=== PATIENT | male | born 1960 | race Caucasian/White ===

== ENCOUNTER 2018-05-16 08:40 | Inpatient (IN) | payer MEDICARE, OTHER ==
[~2018-05-16] VITALS: Ht 170.2 cm; Wt 68.0 kg
[~2018-05-16 08:40] MED LIST: ASPIRIN-LOW81 MG ORAL; BACTRIM-DS1 EA ORAL; GABAPENTIN600 MG ORAL; KETOCONAZOLE15 GM TOP; KLONOPIN1 MG ORAL; LEVOTHYROXINE50 MCG ORAL; NASONEX17 GM NASAL; PHENYTOIN SODI100 MG ORAL; PRAVASTATIN SOD20 M1 ORAL; PROAIR HFA8.5 GM INH; QUETIAPINE FUM200 MG ORAL; SAPHRIS10 MG SL
[2018-05-16] MEDS ORDERED: RISPERDAL2 MG ORAL (08:49)
[2018-05-16 09:06] VITALS: BP 115/64
--- NOTE | 2018-05-16 09:22 | Emergency Room Report ---
History of Present Illness General Chief Complaint: General Complaint Source: Medical Record Present Illness HPI This patient is not a great historian but c/o pain/swelling/infection right foot for ?two weeks, getting worse past few days. He lives in a board and care. He does not know how it started. Denies fever, n/v, other complaints. He does not have similar hx. PMH: epilepsy Allergies: Coded Allergies: No Known Allergies (Unverified , 01/20/14) Nursing Documentation-PMH Hx Cardiac Problems: Yes - EMPHYSEMA Hx COPD: Yes History Of Psychiatric Problem: Yes - schizo Hx Neurological Problems: Yes Hx Seizures: Yes Hx Epilepsy: Yes Review of Systems Constitutional: Reports: no symptoms Eye: Reports: no symptoms ENT: Reports: no symptoms Respiratory: Reports: no symptoms Cardiovascular: Reports: no symptoms Gastrointestinal: Reports: no symptoms Genitourinary: Reports: no symptoms Musculoskeletal: Reports: no symptoms Skin: Reports: no symptoms Psychiatric: Reports: no symptoms Neurological: Reports: no symptoms Endocrine: Reports: no symptoms Hematologic/Lymphatic: Reports: no symptoms Allergic: Reports: no symptoms Physical Exam Vital Signs Date Time Temp Pulse Resp B/P (MAP) Pulse Ox O2 Delivery O2 Flow Rate FiO2 05/16/18 08:28 98.0 88 18 130/8 97 Room Air 98.1 Sp02 EP Interpretation: reviewed, normal General Appearance: normal inspection, well appearing, no apparent distress, alert, GCS 15, non-toxic Head: normocephalic, atraumatic Eyes: bilateral eye normal inspection, bilateral eye PERRL, bilateral eye EOMI ENT: normal ENT inspection, hearing grossly normal, normal pharynx, no angioedema, normal voice, moist mucus membranes Neck: normal inspection, full range of motion, supple, no meningismus, no bony tend Respiratory: normal inspection, lungs clear, normal breath sounds, no rhonchi, no respiratory distress, no retraction, no accessory muscle use, no wheezing Cardiovascular #1: normal inspection, regular rate, rhythm, no edema Gastrointestinal: normal inspection, normal bowel sounds, non tender, soft, no mass, non-distended Musculoskeletal: gait/station normal, other - all normal except right foot: soft tissue swelling, infection, pus maximum plantar surface 4/5 metatarsals and MTPs, there seems to have been athlete's foot at this location Neurologic: normal inspection, alert, oriented x3, responsive, motor strength/ tone normal Psychiatric: normal inspection, judgement/insight normal, memory normal Suicide Risk Assessment: Suicidal Ideation: No Had intent to initiate attempt: No Pt's plan for suicide attempt: No Has means to complete attempt: No Skin: normal inspection, normal color, no rash, warm/dry Medical Decision Making Diagnostic Impression: Primary Impression: Cellulitis of right foot Additional Impression: Hyponatremia ER Course d/w Dr. Mora; aware foot, hyponatremia. IV fluids and IV Zosyn given Rhythm Strip Diag. Results Rhythm Strip Time: 11:23 EP Interpretation: yes Rhythm: NSR, no PVC's, no ectopy Last Vital Signs Date Time Temp Pulse Resp B/P (MAP) Pulse Ox O2 Delivery O2 Flow Rate FiO2 05/16/18 09:06 76 18 115/64 92 Room Air 05/16/18 08:28 98.0 98.1 Disposition: ADMITTED INPATIENT Condition: Serious Referrals: NON PHYSICIAN (PCP) Tuan Mistry M.D. May 16, 2018 09:22
[2018-05-16] MEDS ORDERED: Piperacillin/Tazobactam 3.375 GM in NS 110 ML IVPB ONE (09:30)
[2018-05-16 09:41] LABS: BASOPHILS % (AUTO) 0.9 % (0.0-2.0); EOSINOPHILS % (AUTO) 5.5 % (0.0-3.0); HEMATOCRIT 38.9 % (42.0-52.0); HEMOGLOBIN 13.3 G/DL (14.2-18.0); LYMPHOCYTES % (AUTO) 15.5 % (20.0-45.0); MEAN CORPUSCULAR VOLUME 88 FL (80-99); MONOCYTES % (AUTO) 8.6 % (1.0-10.0); NEUTROPHILS % (AUTO) 69.5 % (45.0-75.0); PLATELET COUNT 308 K/UL (150-450); RED BLOOD COUNT 4.43 M/UL (4.70-6.10); RED CELL DISTRIBUTION WIDTH 11.8 % (11.6-14.8); WHITE BLOOD COUNT 6.2 K/UL (4.8-10.8)
[2018-05-16 09:42] LABS: ANION GAP 4 mmol/L (5-15); BLOOD UREA NITROGEN 7 mg/dL (7-18); CALCIUM 8.2 MG/DL (8.5-10.1); CARBON DIOXIDE 30 MMOL/L (21-32); CHLORIDE 91 MMOL/L (98-107); CREATININE 0.9 MG/DL (0.55-1.30); POTASSIUM 3.7 MMOL/L (3.5-5.1); SODIUM 125 MMOL/L (136-145)
[2018-05-16 09:47] LABS: ALANINE AMINOTRANSFERASE 27 U/L (12-78); ALBUMIN 3.7 G/DL (3.4-5.0); ALBUMIN/GLOBULIN RATIO 1.2 (1.0-2.7); ALKALINE PHOSPHATASE 104 U/L (46-116); ASPARTATE AMINO TRANSFERASE 25 U/L (15-37); BILIRUBIN,TOTAL 0.3 MG/DL (0.2-1.0)
[2018-05-16 10:01] LABS: APPEARANCE,URINE CLEAR; BILIRUBIN, URINE NEGATIVE (NEGATIVE); COLOR,URINE PALE YELLOW; GLUCOSE, URINE (UA) NEGATIVE (NEGATIVE); KETONES,URINE NEGATIVE (NEGATIVE); LEUKOCYTE ESTERASE ,URINE NEGATIVE (NEGATIVE); NITRITE,URINE NEGATIVE (NEGATIVE); PH,URINE 7 (4.5-8.0); PROTEIN,URINE NEGATIVE (NEGATIVE); UROBILINOGEN,URINE NORMAL MG/DL (0.0-1.0)
[2018-05-16 10:57] VITALS: BP 110/58
--- NOTE | 2018-05-16 11:44 | Diagnostic Imaging Report ---
Indication: Foot Pain Comparison: None Findings: 3 views of the right foot were obtained. No definite acute fracture is identified. Bones are osteopenic. Narrowing of the first MTP joint, mild hallux valgus and narrowing of several of the interphalangeal joints also demonstrated. Soft tissue swelling is mild. Plantar calcaneal spur noted. IMPRESSION: No acute injury appreciated
[2018-05-16 12:37] VITALS: BP 115/73
[2018-05-16] MEDS ORDERED: GABAPENTIN300 MG ORAL (12:48)
[2018-05-16] MEDS ORDERED: SEROQUEL200 MG ORAL (12:48)
[2018-05-16] MEDS ORDERED: PHENYTOIN SODI100 MG ORAL (12:48)
[2018-05-16] MEDS ORDERED: ZOLPIDEM TARTRA10 MG ORAL (12:48)
[2018-05-16] MEDS ORDERED: GABAPENTIN600 MG ORAL (12:48)
[2018-05-16] MEDS ORDERED: INVEGA SUS234 MG/1.5 IM (12:53)
[2018-05-16] MEDS ORDERED: Zolpidem 5mg tab ORAL PRN (14:15)
[2018-05-16] MEDS ORDERED: Norco 5mg/325mg tab ORAL PRN ×2 (14:15)
[2018-05-16] MEDS ORDERED: Albuterol/Ipratropium 3ml neb HHN PRN (14:15)
[2018-05-16 16:00] VITALS: BP 128/80
[2018-05-16] MEDS ORDERED: Vancomycin 1gm/D5W 275ml IVPB ONE ×2 (17:00)
[2018-05-16 20:00] VITALS: BP 114/73
[2018-05-16] MEDS: QUEtiapine 200mg tab ORAL SCH (21:23)
[2018-05-16] MEDS: Phenytoin 100mg cap ORAL SCH (21:24)
[2018-05-16] MEDS: Heparin 5000 units/ml inj SUBQ SCH (21:27)
--- NOTE | 2018-05-16 22:00 | History and Physical Report ---
DATE OF ADMISSION: 05/16/2018 REASON FOR ADMISSION: Right foot cellulitis and right foot injury. HISTORY OF PRESENT ILLNESS: This is a 57-year-old male, who is a fairly poor historian. The patient resides at a [facility]. Over the past 2 weeks, the patient has noted increasing redness, swelling, and denudation of the skin. The patient denies any clear injury. Denies any fevers. Denies any trauma. Denies any bug bites. Denies any other significant history. The patient is seen evaluated emergency room, now being admitted for significant cellulitis. The patient unclear as to the medication list and medication problems. The findings reviewed with the ER physician and the nursing staff. PAST MEDICAL HISTORY: Notable for COPD. PSYCHIATRIC HISTORY: Cognitive dysfunction, seizure disorder. The patient with history of anxiety. MEDICATIONS: Reviewed. ALLERGIES: Reviewed. SOCIAL HISTORY: The patient does have a smoking history. He resides in a [facility]. He is disabled. REVIEW OF SYSTEMS: Otherwise negative and all reviewed. PHYSICAL EXAMINATION: GENERAL: A well-developed male, comfortable at present. VITAL SIGNS: Blood pressure 110/58, pulse 73, respiratory rate 18, saturations 100%, and temperature is 98 degrees. HEENT: Negative. NECK: Supple. No adenopathy. Extraocular movements are grossly intact. LUNGS: Fairly clear and symmetric. Reduced air entry. CARDIAC: S1 and S2. Regular rhythm without murmurs, rubs, or gallops. ABDOMEN: Soft, nontender, and nondistended. EXTREMITIES: No cyanosis or clubbing. There is edema of the right foot with noted erythema and loss of skin integrity. No clear gangrene. Reduced pulses. NEUROLOGICAL: Otherwise, grossly nonfocal. Alert and oriented x3. LABORATORY AND DIAGNOSTIC DATA: Lab data reviewed. Sodium 125, potassium 3.7, BUN and creatinine normal at 7.9. White blood cell count 6.2, hemoglobin 13.3, hematocrit 38, and platelets are normal. Toxicology screen with Dilantin of 8.5. IMPRESSION: 1. Chronic obstructive pulmonary disease per history. 2. Seizure disorder per history. 3. Evidence of right foot cellulitis. 4. Hyponatremia, unclear as to etiology. RECOMMENDATIONS: Resume medications. IV hydration. Follow up electrolytes. Follow up sodium. Follow up Dilantin level. On Synthroid, monitor TSH. Obtain podiatry evaluation. Consider ID evaluation. Antibiotics for now. Follow clinically for change and may need short-term assisted care for aggressive wound care. Kevin Mora M.D. DR: GADIEL JOB#: [id number] CC:
[2018-05-17] VITALS: BP 116/71
--- NOTE | 2018-05-17 01:30 | Consultation ---
DATE OF CONSULTATION: 05/16/2018 PODIATRIC CONSULTATION CONSULTING PHYSICIAN: Hieu Matthew D.P.M. HISTORY OF PRESENT ILLNESS: This is a 57-year-old white male, who was admitted into the emergency room today for infection of the right foot. The patient has been complaining of right foot pain, which had developed during the past week. He was brought into the emergency room, and up on examination was admitted for cellulitis of the right foot. There is no accurate history as to prior treatment with respect to the right foot infection. PAST MEDICAL HISTORY: Remarkable for seizure, epilepsy, COPD, emphysema, and schizophrenia. MEDICATIONS: Neurontin, Protonix, Ecotrin, Synthroid, Dilantin, Seroquel, Pravachol, Klonopin, and Risperdal. ALLERGIES: There are no known drug allergies. PODIATRIC PHYSICAL EXAMINATION: The vascular status, dorsalis pedis and posterior tibial arteries are equally palpable measuring 2/4 bilaterally. The capillary filling time is less than 4 seconds to all digits bilaterally. Homans sign is negative. Moderate edema of the right lower extremity is present. The edema is nonpitting. No lymphangitis or streaks are noted bilateral lower extremity. No palpable nodes are present bilaterally. MUSCULOSKELETAL: Reveals normal foot with mild cavus and no structural deformities other than mild hammering of digits 2 through 5 bilaterally. NEUROLOGICAL: Reveals intact reflexes, Achilles and patellar measuring 2/4 bilaterally. Sensation, proprioception and vibration sensations are all intact bilateral lower extremity. Babinski is negative. Clonus is absent bilateral lower extremity. DERMATOLOGICAL: Reveals erythema of the right forefoot, most extensive with digits 2 through 5 of the right foot. There are severe wet macerations of the second through the fourth interdigital spaces and they extend to the plantar aspect of the sulcus of the right foot with excoriations and sloughing of the skin. No odor is present. Some minimal bleeding from the macerated skin is noticed. There are mycotic nails present bilaterally in all digits. No other skin lesions are present. No scars or ulcerations otherwise bilateral lower extremity. LABORATORY AND DIAGNOSTIC DATA: Radiological examination consisting of right foot x-rays were performed and revealed no osseous abnormality on the right foot. ASSESSMENT: 1. Severe interdigital tinea pedis, right foot. 2. Secondary synovitis and bacterial infection, right foot. PLAN: 1. Culture and sensitivity, right foot. 2. Continue IV vancomycin and Zosyn. 3. Local wound care consisting of b.i.d wet-to-dry diluted Betadine dressing changes. 4. Elevate right lower extremity. Thank you, Dr. Mora, for allowing me to see this patient in consultation. I will follow him with you. Martín PattonPMyron DR: LOIS JOB#: [id number] CC: SOHAIL
[2018-05-17 04:00] VITALS: BP 115/74
[2018-05-17] MEDS: Vancomycin 750mg/NS 250ml IVPB SCH ×2 (05:07→17:47)
[2018-05-17 08:00] VITALS: BP 113/67
[2018-05-17 08:28] LABS: BASOPHILS % (AUTO) 0.8 % (0.0-2.0); EOSINOPHILS % (AUTO) 4.6 % (0.0-3.0); HEMATOCRIT 40.5 % (42.0-52.0); MEAN CORPUSCULAR VOLUME 88 FL (80-99); MONOCYTES % (AUTO) 7.6 % (1.0-10.0); NEUTROPHILS % (AUTO) 67.9 % (45.0-75.0); PLATELET COUNT 306 K/UL (150-450); RED BLOOD COUNT 4.61 M/UL (4.70-6.10)
--- NOTE | 2018-05-17 08:43 | General Progress Note ---
Assessment/Plan Assessment/Plan IMPRESSION: 1. Chronic obstructive pulmonary disease per history. 2. Seizure disorder per history. 3. Evidence of right foot cellulitis. 4. Hyponatremia, unclear as to etiology. PLAN podiatry ID follow up antibiotics continue to monitor skin and wound care dc once cleared may need short term wound care impression, plan, and exam edited and reviewed in detail care discussed with RN Subjective Allergies: Coded Allergies: No Known Allergies (Unverified , 01/20/14) Subjective stable alert care noted Objective Last 24 Hour Vital Signs Date Time Temp Pulse Resp B/P (MAP) Pulse Ox O2 Delivery O2 Flow Rate FiO2 05/17/18 04:00 98.5 78 18 115/74 (88) 94 98.5 05/17/18 00:00 97.8 89 18 116/71 (86) 95 97.8 05/16/18 21:00 Room Air 05/16/18 20:08 96 18 Room Air 05/16/18 20:00 98.7 83 18 114/73 (87) 95 98.7 05/16/18 16:00 98.3 97 19 128/80 (96) 97 98.3 05/16/18 13:30 Room Air 05/16/18 12:37 97.3 87 18 115/73 (87) 97 97.3 05/16/18 12:00 98.0 72 18 110/58 100 Room Air 98.1 05/16/18 10:57 72 18 110/58 100 Room Air 05/16/18 09:06 76 18 115/64 92 Room Air Intake and Output 05/16/18 05/17/18 19:00 07:00 Intake Total 710 ml 1066.667 ml Output Total 2000 ml Balance -1290 ml 1066.667 ml Intake Oral 500 ml IV Total 210 ml 1066.667 ml Output Urine Total 2000 ml Stool Total 0 ml # Voids 1 5 Laboratory Tests 05/16/18 09:19: White Blood Count 6.2, Red Blood Count 4.43L, Hemoglobin 13.3L, Hematocrit 38.9L , Mean Corpuscular Volume 88, Mean Corpuscular Hemoglobin 30.0, Mean Corpuscular Hemoglobin Concent 34.1, Red Cell Distribution Width 11.8, Platelet Count 308, Mean Platelet Volume 5.4L, Neutrophils (%) (Auto) 69.5, Lymphocytes ( %) (Auto) 15.5L, Monocytes (%) (Auto) 8.6, Eosinophils (%) (Auto) 5.5H, Basophils (%) (Auto) 0.9, Erythrocyte Sedimentation Rate 14, Prothrombin Time 10.7, Prothromb Time International Ratio 1.0, Sodium Level 125L, Potassium Level 3.7, Chloride Level 91L, Carbon Dioxide Level 30, Anion Gap 4L, Blood Urea Nitrogen 7, Creatinine 0.9, Estimat Glomerular Filtration Rate > 60, Glucose Level 87, Calcium Level 8.2L, Total Bilirubin 0.3, Aspartate Amino Transf (AST/SGOT) 25, Alanine Aminotransferase (ALT/SGPT) 27, Alkaline Phosphatase 104, Troponin I 0.000, Total Protein 6.9, Albumin 3.7, Globulin 3.2 , Albumin/Globulin Ratio 1.2, Phenytoin (Dilantin) Level 8.5L 05/16/18 09:40: Urine Color Pale yellow, Urine Appearance Clear, Urine pH 7, Urine Specific [place] 1.010, Urine Protein Negative, Urine Glucose (UA) Negative, Urine Ketones Negative, Urine Occult Blood Negative, Urine Nitrite Negative, Urine Bilirubin Negative, Urine Urobilinogen Normal, Urine Leukocyte Esterase Negative , Urine RBC 0-2H, Urine WBC 0-2, Urine Squamous Epithelial Cells None, Urine Bacteria Occasional 05/17/18 07:35: White Blood Count [Pending], Red Blood Count [Pending], Hemoglobin [Pending], Hematocrit [Pending], Mean Corpuscular Volume [Pending], Mean Corpuscular Hemoglobin [Pending], Mean Corpuscular Hemoglobin Concent [Pending], Red Cell Distribution Width [Pending], Platelet Count [Pending], Mean Platelet Volume [ Pending], Neutrophils (%) (Auto) [Pending], Lymphocytes (%) (Auto) [Pending], Monocytes (%) (Auto) [Pending], Eosinophils (%) (Auto) [Pending], Basophils (%) (Auto) [Pending], Sodium Level [Pending], Potassium Level [Pending], Chloride Level [Pending], Carbon Dioxide Level [Pending], Blood Urea Nitrogen [Pending], Creatinine [Pending], Estimat Glomerular Filtration Rate [Pending], Glucose Level [Pending], Calcium Level [Pending], Phenytoin (Dilantin) Level [Pending] Height (Feet): 5 Height (Inches): 7.00 Weight (Pounds): 150 Objective GENERAL: A well-developed male, comfortable at present. NAD HEENT: Negative. NECK: Supple. No adenopathy. Extraocular movements are grossly intact. LUNGS: Fairly clear and symmetric. Reduced air entry. CARDIAC: S1 and S2. Regular rhythm without murmurs, rubs, or gallops. ABDOMEN: Soft, nontender, and nondistended. EXTREMITIES: No cyanosis or clubbing. There is edema of the right foot with noted erythema and loss of skin integrity. No clear gangrene. Reduced pulses. NEUROLOGICAL: Otherwise, grossly nonfocal. Alert and oriented x3. Kevin Mora MD May 17, 2018 08:43
[2018-05-17] MEDS ORDERED: QUEtiapine 200mg tab ORAL SCH (09:00)
[2018-05-17] MEDS: Phenytoin 100mg cap ORAL SCH ×2 (09:01→20:44)
[2018-05-17] MEDS: Aspirin EC 81mg tab ORAL SCH (09:02)
[2018-05-17] MEDS: Heparin 5000 units/ml inj SUBQ SCH ×2 (09:04→20:46)
[2018-05-17 09:26] LABS: ANION GAP 8 mmol/L (5-15); BLOOD UREA NITROGEN 7 mg/dL (7-18); CALCIUM 8.2 MG/DL (8.5-10.1); CARBON DIOXIDE 26 MMOL/L (21-32); CHLORIDE 96 MMOL/L (98-107); CREATININE 0.9 MG/DL (0.55-1.30); POTASSIUM 3.7 MMOL/L (3.5-5.1); SODIUM 130 MMOL/L (136-145)
[2018-05-17 12:00] VITALS: BP 110/69
[2018-05-17] MEDS ORDERED: Isovue-300 100ml vial INJ PRN (12:15)
--- NOTE | 2018-05-17 12:41 | Consultation ---
History of Present Illness General Date patient seen: May 17, 2018 Chief Complaint: General Complaint Present Illness HPI 57-year-old male, with hx of schizophrenia and mmp who was admitted from his board and care. the pt was agitated and confused. he has disorganized behavior. the pt is delusional Allergies: Coded Allergies: No Known Allergies (Unverified , 01/20/14) Medication History Scheduled Albuterol Sulfate* (Proair Hfa*), 2 PUFFS INH Q6H, (Reported) Aspirin (Aspirin EC), 81 MG ORAL DAILY, (Reported) Clonazepam* (Klonopin*), 1 MG ORAL TID, (Reported) Gabapentin* (Gabapentin*), 600 MG ORAL BID, (Reported) Gabapentin* (Gabapentin*), 300 MG ORAL noon, (Reported) Levothyroxine Sodium* (Levothyroxine Sodium*), 75 MCG ORAL DAILY, (Reported) Paliperidone Palmitate (Invega Sustenna), 234 MG IM [id number], (Reported) Phenytoin Sodium Extended* (Phenytoin Sodium Extended*), 200 MG ORAL DAILY, ( Reported) Phenytoin Sodium Extended* (Phenytoin Sodium Extended*), 300 MG ORAL BEDTIME, ( Reported) Pravastatin Sod* (Pravastatin Sod*), 20 MG ORAL BEDTIME, (Reported) Quetiapine Fumarate* (Seroquel*), 200 MG ORAL DAILY, (Reported) Quetiapine Fumarate* (Seroquel*), 400 MG ORAL QHS, (Reported) Risperidone* (Risperdal*), 3 MG ORAL BID, (Reported) Scheduled PRN Zolpidem Tartrate* (Zolpidem Tartrate*), 10 MG ORAL BEDTIME PRN for Insomnia, ( Reported) Discontinued Medications Gabapentin* (Gabapentin*), 600 MG ORAL BID, (Reported) Discontinued Reason: Medication dose changed Ketoconazole* (Nizoral*), 1 APPLIC TOP BID Discontinued Reason: Therapy completed Mometasone Furoate (Nasonex), 2 SPRAYS NASAL DAILY, (Reported) Discontinued Reason: Therapy completed Trimethoprim/Sulfamethoxazole (Bactrim Ds Tablet), 1 TAB ORAL TWICE A DAY Discontinued Reason: Therapy completed Patient History History Provided By: Patient, Medical Record, PMD Healthcare decision maker Resuscitation status Full Code Advanced Directive on File Past Medical/Surgical History Past Medical/Surgical History: (1) Hyponatremia syndrome (2) Hyponatremia (3) Seizure (4) Tinea pedis (5) Callus (6) Cellulitis of right foot Review of Systems Psychiatric: Reports: prior hx, anxiety, depressed feelings, emotional problems , hallucinations Physical Exam General Appearance: no apparent distress, alert, confused, agitated Last 24 Hour Vital Signs Date Time Temp Pulse Resp B/P (MAP) Pulse Ox O2 Delivery O2 Flow Rate FiO2 05/17/18 08:00 98.2 85 21 113/67 (82) 97 98.2 05/17/18 04:00 98.5 78 18 115/74 (88) 94 98.5 05/17/18 00:00 97.8 89 18 116/71 (86) 95 97.8 05/16/18 21:00 Room Air 05/16/18 20:08 96 18 Room Air 05/16/18 20:00 98.7 83 18 114/73 (87) 95 98.7 05/16/18 16:00 98.3 97 19 128/80 (96) 97 98.3 05/16/18 13:30 Room Air 05/16/18 12:37 97.3 87 18 115/73 (87) 97 97.3 Intake and Output 05/16/18 05/17/18 19:00 07:00 Intake Total 710 ml 1066.667 ml Output Total 2000 ml Balance -1290 ml 1066.667 ml Intake Oral 500 ml IV Total 210 ml 1066.667 ml Output Urine Total 2000 ml Stool Total 0 ml # Voids 1 5 Laboratory Tests Test 05/17/18 07:35 White Blood Count 5.0 K/UL (4.8-10.8) Red Blood Count 4.61 M/UL (4.70-6.10) L Hemoglobin 14.0 G/DL (14.2-18.0) L Hematocrit 40.5 % (42.0-52.0) L Mean Corpuscular Volume 88 FL (80-99) Mean Corpuscular Hemoglobin 30.4 PG (27.0-31.0) Mean Corpuscular Hemoglobin Concent 34.6 G/DL (32.0-36.0) Red Cell Distribution Width 12.0 % (11.6-14.8) Platelet Count 306 K/UL (150-450) Mean Platelet Volume 5.2 FL (6.5-10.1) L Neutrophils (%) (Auto) 67.9 % (45.0-75.0) Lymphocytes (%) (Auto) 19.0 % (20.0-45.0) L Monocytes (%) (Auto) 7.6 % (1.0-10.0) Eosinophils (%) (Auto) 4.6 % (0.0-3.0) H Basophils (%) (Auto) 0.8 % (0.0-2.0) Sodium Level 130 MMOL/L (136-145) L Potassium Level 3.7 MMOL/L (3.5-5.1) Chloride Level 96 MMOL/L (98-107) L Carbon Dioxide Level 26 MMOL/L (21-32) Anion Gap 8 mmol/L (5-15) Blood Urea Nitrogen 7 mg/dL (7-18) Creatinine 0.9 MG/DL (0.55-1.30) Estimat Glomerular Filtration Rate > 60 mL/min (>60) Glucose Level 142 MG/DL (74-106) H Calcium Level 8.2 MG/DL (8.5-10.1) L Phenytoin (Dilantin) Level 8.5 ug/mL (10-20) L Height (Feet): 5 Height (Inches): 7.00 Weight (Pounds): 150 Medications Current Medications Medications (Trade) Dose Ordered Sig/[place] Route PRN Reason Start Time Stop Time Status Last Admin Dose Admin Acetaminophen (Tylenol) 650 mg Q4H PRN ORAL Mild Pain/Temp > 100.5 05/16/18 14:15 06/15/18 14:14 Acetaminophen/ Hydrocodone Bitart ([place] 5/325) 1 tab Q4H PRN ORAL Moderate Pain (Pain Scale 4-6) 05/16/18 14:15 05/23/18 14:14 Acetaminophen/ Hydrocodone Bitart ([place] 5/325) 2 tab Q4H PRN ORAL Severe Pain (Pain Scale 7-10) 05/16/18 14:15 05/23/18 14:14 Al Hydroxide/Mg Hydroxide (Mylanta) 30 ml Q6H PRN ORAL Per rx protocol 05/16/18 14:15 06/15/18 14:14 Albuterol/ Ipratropium (Albuterol/ Ipratropium) 3 ml Q6H PRN HHN Shortness of Breath 05/16/18 14:15 05/21/18 14:14 Aspirin (Ecotrin) 81 mg DAILY ORAL 05/17/18 09:00 06/16/18 08:59 05/17/18 09:02 Dextrose (Dextrose 50%) 50 ml STAT PRN IV Hypoglycemia 05/16/18 14:15 06/15/18 14:14 Gabapentin (Neurontin) 300 mg Q24H ORAL 05/17/18 12:00 06/16/18 11:59 Gabapentin (Neurontin) 600 mg Q12H ORAL 05/16/18 21:00 06/15/18 20:59 05/17/18 09:10 Heparin Sodium (Porcine) (Heparin 5000 units/ml) 5,000 units EVERY 12 HOURS SUBQ 05/16/18 21:00 06/15/18 20:59 05/17/18 09:04 Iopamidol (Isovue-300 100ml) 100 ml NOW PRN INJ Radiology Procedure 05/17/18 12:15 05/19/18 12:13 UNV Levothyroxine Sodium (Synthroid) 75 mcg DAILY ORAL 05/17/18 09:00 06/16/18 08:59 05/17/18 09:01 Pantoprazole (Protonix) 40 mg DAILY ORAL 05/17/18 09:00 06/16/18 08:59 05/17/18 09:02 Phenytoin (Dilantin) 200 mg DAILY ORAL 05/17/18 09:00 06/16/18 08:59 05/17/18 09:01 Phenytoin (Dilantin) 300 mg BEDTIME ORAL 05/16/18 21:00 06/15/18 20:59 05/16/18 21:24 Pravastatin Sodium (Pravachol) 20 mg BEDTIME ORAL 05/16/18 21:00 06/15/18 20:59 05/16/18 21:23 Quetiapine Fumarate (SEROquel) 200 mg DAILY ORAL 05/17/18 09:00 06/16/18 08:59 05/17/18 09:02 Quetiapine Fumarate (SEROquel) 400 mg QHS ORAL 05/16/18 21:00 06/15/18 20:59 05/16/18 21:23 Risperidone (RisperDAL) 3 mg BID ORAL 05/16/18 18:00 06/15/18 17:59 05/17/18 09:02 Sodium Chloride 1,000 ml @ 100 mls/hr Q10H IVLG 05/16/18 16:00 06/15/18 15:59 05/17/18 02:36 Vancomycin HCl (Vanco rx to dose) 1 ea DAILY PRN MISC Per rx protocol 05/16/18 14:15 06/15/18 14:14 Vancomycin/Sodium Chloride 250 ml @ 166.667 mls/hr Q12H IVPB 05/17/18 05:00 05/22/18 04:59 05/17/18 05:07 Zolpidem Tartrate (Ambien) 5 mg HSPRN PRN ORAL Insomnia 05/16/18 14:15 05/23/18 14:14 Assessment/Plan Status: stable Assessment/Plan Schizophrenia encephalopathy -risperdal 3mg bid -haldol 5mg q 6hr prn Vijay Todd MD May 17, 2018 12:41
[2018-05-17] MEDS ORDERED: Gadavist 7.5mMol/7.5ml vial IV PRN (13:30)
[2018-05-17] MEDS ORDERED: Gadavist 7.5mMol/7.5ml vial IV ONE (13:30)
[2018-05-17 16:00] VITALS: BP 107/66
--- NOTE | 2018-05-17 16:39 | Diagnostic Imaging Report ---
Indication: Open ulceration and infection/cellulitis plantar aspect of the lateral foot. Technique: Right forefoot and midfoot imaging utilizing multiplanar T1 fast spin-echo, proton and T2 fast spin-echo with fat saturation, and STIR. Comparison: None Findings: No acute osteomyelitis identified. Bone marrow signal is well preserved throughout the visualized midfoot and forefoot. No joint effusion identified. There is subcutaneous edema and edema within the intrinsic muscles within the foot deep to the plantar aponeurosis. Findings consistent with cellulitis. IMPRESSION: No acute osteomyelitis or abscess identified.
--- NOTE | 2018-05-17 18:47 | Consultation ---
DATE OF CONSULTATION: 05/17/2018 INFECTIOUS DISEASE CONSULTATION CONSULTING PHYSICIAN: Angeline Santana M.D. REFERRING PHYSICIAN: Kevin Mora M.D. REASON FOR CONSULTATION: Right leg cellulitis and wound infection. HISTORY OF PRESENTING ILLNESS: This is a 57-year-old gentleman with history of COPD, cognitive dysfunction, seizure disorder, anxiety, who comes in because he had right foot ulcers, and Infectious Diseases consultation has been obtained for antibiotics. PAST MEDICAL HISTORY: 1. History of COPD. 2. Cognitive dysfunction. 3. Seizure disorder. 4. Anxiety. SOCIAL HISTORY: He used to be a smoker. He does not smoke anymore. Rest of the history is unknown. FAMILY HISTORY: Unknown. REVIEW OF SYSTEMS: Unable to obtain currently. MEDICATIONS: As an inpatient, the patient is on gabapentin, Protonix, aspirin, levothyroxine, Dilantin, Seroquel, IV vancomycin, subcutaneous heparin, Pravachol, Risperdal, ipratropium and albuterol, Tylenol, Ambien, Mylanta, and [place]. ALLERGIES: No known drug allergies. PHYSICAL EXAMINATION: VITAL SIGNS: Temperature of 98.2, T-max of 98.3, pulse of 85, respiratory rate 21, blood pressure 113/67, O2 saturation of 97%. HEENT: Pupils equally reactive to light and accommodation. Mouth appears clean without thrush. NECK: Supple. No adenopathy. No JVD. CARDIOVASCULAR: Regular rate and rhythm. No murmurs. LUNGS: Clear to auscultation bilaterally. No crackles. No wheezes. ABDOMEN: Soft and nontender. No organomegaly. EXTREMITIES: No cyanosis, no clubbing, no edema. Right foot dorsal aspect ulcers noted. Right foot plantar aspect ulcers noted. LABORATORY AND DIAGNOSTIC DATA: White count 5, hemoglobin 14, hematocrit 40.5, MCV 88, platelet count of 306 with neutrophils of 67%. Sodium 130, potassium 3.7, chloride 96, bicarbonate 26, BUN 7, creatinine 0.9, glucose 142, calcium 8.2. Total bilirubin 0.3 on 05/16/2018. AST 25, ALT 27, alkaline phosphatase 104, total protein 6.9, and albumin 3.7. UA showing 0 to 2 white cells. Foot x-ray is showing no acute injury. ASSESSMENT: 1. This is a 57-year-old gentleman with history of cognitive dysfunction, seizure disorder, and anxiety, who comes in with right foot ulcers with a concern regarding underlying osteomyelitis as a possibility. He also has right foot cellulitis. 2. Seizure disorder. 3. Cognitive dysfunction. PLAN: 1. Continue IV vancomycin. 2. We will order a CT of the right foot. 3. We will follow up. 4. We will order foot cultures. I would like to thank Dr. Mora for this consultation. Angeline Santana M.D. DR: TRACEE JOB#: [id number] CC: Kevin Mora M.D.; Fax#: [phone]
--- NOTE | 2018-05-17 19:09 | Podiatric Progress Note ---
Assessment/Plan Patient Nicholas Obando is a 57 year old male who was admitted on May 16, 2018 at 09:45 with Status: progressing Assessment/Plan A 1. Interdigital tinea severe right foot with secondary bacterial infection P 1. Continue IV antibiotics 2. Continue wet to dry diluted Betadine dressing changes Subjective Constitutional: pain decreased, elevating limb Allergies: Coded Allergies: No Known Allergies (Unverified , 01/20/14) Objective Exam Last 24 Hour Vital Signs Date Time Temp Pulse Resp B/P (MAP) Pulse Ox O2 Delivery O2 Flow Rate FiO2 05/17/18 16:00 99.1 75 20 107/66 (80) 97 99.1 05/17/18 12:00 98.5 90 22 110/69 (83) 97 98.5 05/17/18 09:00 Room Air 05/17/18 08:00 98.2 85 21 113/67 (82) 97 98.2 05/17/18 04:00 98.5 78 18 115/74 (88) 94 98.5 05/17/18 00:00 97.8 89 18 116/71 (86) 95 97.8 05/16/18 21:00 Room Air 05/16/18 20:08 96 18 Room Air 05/16/18 20:00 98.7 83 18 114/73 (87) 95 98.7 Laboratory Tests Test 05/17/18 07:35 White Blood Count 5.0 K/UL (4.8-10.8) Red Blood Count 4.61 M/UL (4.70-6.10) L Hemoglobin 14.0 G/DL (14.2-18.0) L Hematocrit 40.5 % (42.0-52.0) L Mean Corpuscular Volume 88 FL (80-99) Mean Corpuscular Hemoglobin 30.4 PG (27.0-31.0) Mean Corpuscular Hemoglobin Concent 34.6 G/DL (32.0-36.0) Red Cell Distribution Width 12.0 % (11.6-14.8) Platelet Count 306 K/UL (150-450) Mean Platelet Volume 5.2 FL (6.5-10.1) L Neutrophils (%) (Auto) 67.9 % (45.0-75.0) Lymphocytes (%) (Auto) 19.0 % (20.0-45.0) L Monocytes (%) (Auto) 7.6 % (1.0-10.0) Eosinophils (%) (Auto) 4.6 % (0.0-3.0) H Basophils (%) (Auto) 0.8 % (0.0-2.0) Sodium Level 130 MMOL/L (136-145) L Potassium Level 3.7 MMOL/L (3.5-5.1) Chloride Level 96 MMOL/L (98-107) L Carbon Dioxide Level 26 MMOL/L (21-32) Anion Gap 8 mmol/L (5-15) Blood Urea Nitrogen 7 mg/dL (7-18) Creatinine 0.9 MG/DL (0.55-1.30) Estimat Glomerular Filtration Rate > 60 mL/min (>60) Glucose Level 142 MG/DL (74-106) H Calcium Level 8.2 MG/DL (8.5-10.1) L Phenytoin (Dilantin) Level 8.5 ug/mL (10-20) L General Appearance: no apparent distress, confused Vascular Pulses: 2 dorsalis pedis (R), 2 dorsalis pedis (L), 2 posterior tibial (R), 2 posterior tibial (L) Edema: no edema noted foot (L); 1+ (<2mm) foot (R), 1+ (<2mm) ankle (R) Temperature: increased warmth Dermatological Wound Assessment : Wound location: right, distal, dorsal, foot Malodor: none/absent Skin Surrounding Wound: erythema, moist, macerated Hieu Matthew DPM May 17, 2018 19:09
[2018-05-17 20:00] VITALS: BP 113/73
[2018-05-17] MEDS: QUEtiapine 200mg tab ORAL SCH (20:44)
[2018-05-18] VITALS: BP 127/82
[2018-05-18 04:00] VITALS: BP 125/84
[2018-05-18] MEDS: Vancomycin 750mg/NS 250ml IVPB SCH ×2 (04:48→17:03)
[2018-05-18 08:00] VITALS: BP 111/60
[2018-05-18] MEDS: Aspirin EC 81mg tab ORAL SCH (08:04)
[2018-05-18] MEDS: QUEtiapine 200mg tab ORAL SCH (08:05)
[2018-05-18] MEDS: Phenytoin 100mg cap ORAL SCH ×2 (08:05→20:43)
[2018-05-18] MEDS: Heparin 5000 units/ml inj SUBQ SCH ×2 (08:08→20:46)
--- NOTE | 2018-05-18 10:36 | General Progress Note ---
Assessment/Plan Assessment/Plan Schizophrenia encephalopathy -risperdal 3mg bid -haldol 5mg q 6hr prn Subjective Date patient seen: May 18, 2018 Neurologic/Psychiatric: Reports: anxiety, depressed, emotional problems Allergies: Coded Allergies: No Known Allergies (Unverified , 01/20/14) Subjective the pt cont to be disorganized and at times agitated Objective Last 24 Hour Vital Signs Date Time Temp Pulse Resp B/P (MAP) Pulse Ox O2 Delivery O2 Flow Rate FiO2 05/18/18 09:00 Room Air 05/18/18 08:00 98.5 84 22 111/60 (77) 96 98.5 84 05/18/18 04:00 98.3 70 20 125/84 (98) 94 98.3 05/18/18 00:00 97.5 69 20 127/82 (97) 94 97.5 05/17/18 21:00 Room Air 05/17/18 20:26 82 18 Room Air 05/17/18 20:00 97.7 67 18 113/73 (86) 96 97.7 05/17/18 16:00 99.1 75 20 107/66 (80) 97 99.1 05/17/18 12:00 98.5 90 22 110/69 (83) 97 98.5 Intake and Output 05/17/18 05/18/18 19:00 07:00 Intake Total 1226.667 ml 1333.334 ml Balance 1226.667 ml 1333.334 ml Intake Oral 960 ml IV Total 266.667 ml 1333.334 ml # Voids 4 Laboratory Tests 05/18/18 05:10: Vancomycin Level Trough 14.7H Height (Feet): 5 Height (Inches): 7.00 Weight (Pounds): 150 General Appearance: no apparent distress, alert Neurologic: alert, responsive - delusional, depressed affect Vijay Todd MD May 18, 2018 10:36
[2018-05-18 12:00] VITALS: BP 115/70
--- NOTE | 2018-05-18 12:39 | General Progress Note ---
Assessment/Plan Assessment/Plan IMPRESSION: 1. Chronic obstructive pulmonary disease per history. 2. Seizure disorder per history. 3. Evidence of right foot cellulitis. 4. Hyponatremia, unclear as to etiology. PLAN podiatry appreciated ID follow up and clearance antibiotics continue to monitor skin and wound care dc once cleared may need short term wound care and SNF care impression, plan, and exam edited and reviewed in detail care discussed with RN Subjective Allergies: Coded Allergies: No Known Allergies (Unverified , 01/20/14) Subjective stable alert care noted MRI and MD notes reviewed Objective Last 24 Hour Vital Signs Date Time Temp Pulse Resp B/P (MAP) Pulse Ox O2 Delivery O2 Flow Rate FiO2 05/18/18 12:00 97.9 78 22 115/70 (85) 99 97.9 78 05/18/18 09:00 Room Air 05/18/18 08:00 98.5 84 22 111/60 (77) 96 98.5 84 05/18/18 04:00 98.3 70 20 125/84 (98) 94 98.3 05/18/18 00:00 97.5 69 20 127/82 (97) 94 97.5 05/17/18 21:00 Room Air 05/17/18 20:26 82 18 Room Air 05/17/18 20:00 97.7 67 18 113/73 (86) 96 97.7 05/17/18 16:00 99.1 75 20 107/66 (80) 97 99.1 Intake and Output 05/17/18 05/18/18 19:00 07:00 Intake Total 1226.667 ml 1333.334 ml Balance 1226.667 ml 1333.334 ml Intake Oral 960 ml IV Total 266.667 ml 1333.334 ml # Voids 4 Laboratory Tests 05/18/18 05:10: Vancomycin Level Trough 14.7H Height (Feet): 5 Height (Inches): 7.00 Weight (Pounds): 150 Objective GENERAL: A well-developed male, comfortable at present. NAD HEENT: Negative. NECK: Supple. No adenopathy. Extraocular movements are grossly intact. LUNGS: Fairly clear and symmetric. Reduced air entry. CARDIAC: S1 and S2. Regular rhythm without murmurs, rubs, or gallops. ABDOMEN: Soft, nontender, and nondistended. EXTREMITIES: No cyanosis or clubbing. slight improvement noted NEUROLOGICAL: Otherwise, grossly nonfocal. Alert and oriented x3. Kevin Mora MD May 18, 2018 12:39
[2018-05-18 16:00] VITALS: BP 105/67
--- NOTE | 2018-05-18 17:03 | Infectious Diseases Prog Note ---
Assessment/Plan Assessment/Plan A; R foot cellulitis Tinea pedis Seizure disorder Schizophrenia P; Continue Vancomycin Add Clotrimazole Subjective ROS Limited/Unobtainable: No Constitutional: Reports: no symptoms Respiratory: Reports: no symptoms Cardiovascular: Reports: no symptoms Gastrointestinal/Abdominal: Reports: no symptoms Genitourinary: Reports: no symptoms Skin: Reports: rash Allergies: Coded Allergies: No Known Allergies (Unverified , 01/20/14) Objective Vital Signs Last 24 Hour Vital Signs Date Time Temp Pulse Resp B/P (MAP) Pulse Ox O2 Delivery O2 Flow Rate FiO2 05/18/18 16:00 98.1 69 21 105/67 (80) 99 98.1 69 05/18/18 12:00 97.9 78 22 115/70 (85) 99 97.9 78 05/18/18 09:00 Room Air 05/18/18 08:00 98.5 84 22 111/60 (77) 96 98.5 84 05/18/18 04:00 98.3 70 20 125/84 (98) 94 98.3 05/18/18 00:00 97.5 69 20 127/82 (97) 94 97.5 05/17/18 21:00 Room Air 05/17/18 20:26 82 18 Room Air 05/17/18 20:00 97.7 67 18 113/73 (86) 96 97.7 Height (Feet): 5 Height (Inches): 7.00 Weight (Pounds): 150 General Appearance: no acute distress HEENT: mucous membranes moist Respiratory/Chest: lungs clear Cardiovascular: normal rate Abdomen: soft, non tender Extremities: no edema Skin: other - rash on R third to fifth toes Neurologic/Psychiatric: alert, responsive Microbiology Date/Time Source Procedure Growth Status 05/16/18 09:15 Blood Blood Culture - Preliminary NO GROWTH AFTER 24 HOURS Resulted 05/16/18 09:00 Blood Blood Culture - Preliminary NO GROWTH AFTER 24 HOURS Resulted 05/16/18 09:40 Nasal Nares MRSA Culture - Final NO METHICILLIN RESISTANT STAPH AUREUS... Complete 05/16/18 09:40 Rectum VRE Culture - Final NO VANCOMYCIN RESISTANT ENTEROCOCCUS ... Complete 05/16/18 09:40 Rectum - Final NO CARBAPENEM-RESISTANT ENTEROBACTERI... Complete Laboratory Tests Test 05/18/18 05:10 Vancomycin Level Trough 14.7 ug/mL (5.0-12.0) H Current Medications Medications (Trade) Dose Ordered Sig/Celina Route PRN Reason Start Time Stop Time Status Last Admin Dose Admin Acetaminophen (Tylenol) 650 mg Q4H PRN ORAL Mild Pain/Temp > 100.5 05/16/18 14:15 06/15/18 14:14 Acetaminophen/ Hydrocodone Bitart ([place] 5/325) 1 tab Q4H PRN ORAL Moderate Pain (Pain Scale 4-6) 05/16/18 14:15 05/23/18 14:14 Acetaminophen/ Hydrocodone Bitart ([place] 5/325) 2 tab Q4H PRN ORAL Severe Pain (Pain Scale 7-10) 05/16/18 14:15 05/23/18 14:14 Al Hydroxide/Mg Hydroxide (Mylanta) 30 ml Q6H PRN ORAL Per rx protocol 05/16/18 14:15 06/15/18 14:14 Albuterol/ Ipratropium (Albuterol/ Ipratropium) 3 ml Q6H PRN HHN Shortness of Breath 05/16/18 14:15 05/21/18 14:14 Aspirin (Ecotrin) 81 mg DAILY ORAL 05/17/18 09:00 06/16/18 08:59 05/18/18 08:04 Clonazepam (KlonoPIN) 1 mg BID ORAL 05/17/18 14:00 05/24/18 13:59 05/18/18 08:04 Dextrose (Dextrose 50%) 50 ml STAT PRN IV Hypoglycemia 05/16/18 14:15 06/15/18 14:14 Gabapentin (Neurontin) 300 mg Q24H ORAL 05/17/18 12:00 06/16/18 11:59 05/18/18 08:04 Gabapentin (Neurontin) 600 mg Q12H ORAL 05/16/18 21:00 06/15/18 20:59 05/17/18 20:50 Gadobutrol (Gadavist) 7.5 mmol NOW PRN IV Radiology Procedure 05/17/18 13:30 05/21/18 13:29 Heparin Sodium (Porcine) (Heparin 5000 units/ml) 5,000 units EVERY 12 HOURS SUBQ 05/16/18 21:00 06/15/18 20:59 05/18/18 08:08 Iopamidol (Isovue-300 100ml) 100 ml NOW PRN INJ Radiology Procedure 05/17/18 12:15 05/19/18 12:13 Levothyroxine Sodium (Synthroid) 75 mcg DAILY ORAL 05/17/18 09:00 06/16/18 08:59 05/18/18 08:04 Pantoprazole (Protonix) 40 mg DAILY ORAL 05/17/18 09:00 06/16/18 08:59 05/18/18 08:04 Phenytoin (Dilantin) 200 mg DAILY ORAL 05/17/18 09:00 06/16/18 08:59 05/18/18 08:05 Phenytoin (Dilantin) 300 mg BEDTIME ORAL 05/16/18 21:00 06/15/18 20:59 05/17/18 20:44 Pravastatin Sodium (Pravachol) 20 mg BEDTIME ORAL 05/16/18 21:00 06/15/18 20:59 05/17/18 20:45 Quetiapine Fumarate (SEROquel) 400 mg QHS ORAL 05/16/18 21:00 06/15/18 20:59 05/18/18 08:05 Risperidone (RisperDAL) 3 mg BID ORAL 05/16/18 18:00 06/15/18 17:59 05/18/18 08:04 Sodium Chloride 1,000 ml @ 100 mls/hr Q10H IVLG 05/16/18 16:00 06/15/18 15:59 05/18/18 08:06 Vancomycin HCl (Vanco rx to dose) 1 ea DAILY PRN MISC Per rx protocol 05/16/18 14:15 06/15/18 14:14 Vancomycin/Sodium Chloride 250 ml @ 166.667 mls/hr Q12H IVPB 05/17/18 05:00 05/22/18 04:59 05/18/18 04:48 Zolpidem Tartrate (Ambien) 5 mg HSPRN PRN ORAL Insomnia 05/16/18 14:15 05/23/18 14:14 Neville Smith MD May 18, 2018 17:02
--- NOTE | 2018-05-18 19:51 | Podiatric Progress Note ---
Assessment/Plan Patient Nicholas Obando is a 57 year old male who was admitted on May 16, 2018 at 09:45 with cellulitis and pain right foot Status: progressing Assessment/Plan A 1. Interdigital tinea/Dermatophytosis right foot 2. Secondary bacterial infection with macerations/ulceration right second, third and fourth interdigital areas protruding to the sulcus P. !. Continue IV vanco 2. C&S pending 3. Continue local wound care 4. Start Lamisil PO Subjective Constitutional: pain decreased Allergies: Coded Allergies: No Known Allergies (Unverified , 01/20/14) Objective Exam Last 24 Hour Vital Signs Date Time Temp Pulse Resp B/P (MAP) Pulse Ox O2 Delivery O2 Flow Rate FiO2 05/18/18 16:00 98.1 69 21 105/67 (80) 99 98.1 69 05/18/18 12:00 97.9 78 22 115/70 (85) 99 97.9 78 05/18/18 09:00 Room Air 05/18/18 08:00 98.5 84 22 111/60 (77) 96 98.5 84 05/18/18 04:00 98.3 70 20 125/84 (98) 94 98.3 05/18/18 00:00 97.5 69 20 127/82 (97) 94 97.5 05/17/18 21:00 Room Air 05/17/18 20:26 82 18 Room Air 05/17/18 20:00 97.7 67 18 113/73 (86) 96 97.7 Laboratory Tests Test 05/18/18 05:10 Vancomycin Level Trough 14.7 ug/mL (5.0-12.0) H Microbiology Date/Time Source Procedure Growth Status 05/16/18 09:15 Blood Blood Culture - Preliminary NO GROWTH AFTER 24 HOURS Resulted 05/16/18 09:40 Nasal Nares MRSA Culture - Final NO METHICILLIN RESISTANT STAPH AUREUS... Complete 05/16/18 09:40 Rectum VRE Culture - Final NO VANCOMYCIN RESISTANT ENTEROCOCCUS ... Complete 05/16/18 09:40 Rectum - Final NO CARBAPENEM-RESISTANT ENTEROBACTERI... Complete General Appearance: mild distress, confused Vascular Edema: 1+ (<2mm) foot (R) Dermatological Wound Assessment : Wound location: right, distal, dorsal, foot, other [place] Classification: 1 superficial ulcer Exudate Amount: Scant Wound Margin: well circumscribed Malodor: none/absent Skin Surrounding Wound: erythema, edema, macerated Temperature: within normal limits Cleansing Solution/Irrigant: Betadine Hieu Matthew DPM May 18, 2018 19:51
[2018-05-18 20:00] VITALS: BP 130/82
[2018-05-19] VITALS: BP 119/73
[2018-05-19 04:00] VITALS: BP 106/74
[2018-05-19] MEDS: Vancomycin 750mg/NS 250ml IVPB SCH ×2 (04:32→17:14)
[2018-05-19 08:00] VITALS: BP 121/71
[2018-05-19] MEDS: Heparin 5000 units/ml inj SUBQ SCH ×2 (09:00→21:06)
[2018-05-19] MEDS: Aspirin EC 81mg tab ORAL SCH (09:44)
[2018-05-19] MEDS: Phenytoin 100mg cap ORAL SCH ×2 (09:44→21:05)
--- NOTE | 2018-05-19 09:57 | General Progress Note ---
Assessment/Plan Assessment/Plan IMPRESSION: 1. Chronic obstructive pulmonary disease per history. 2. Seizure disorder per history. 3. Evidence of right foot cellulitis. 4. Hyponatremia, unclear as to etiology. PLAN podiatry appreciated and care to continue ID follow up and clearance- on iv antibiotics antibiotics/ cultures reviewed continue to monitor skin and wound care dc once cleared may need short term wound care and SNF care impression, plan, and exam edited and reviewed in detail care discussed with RN Subjective Allergies: Coded Allergies: No Known Allergies (Unverified , 01/20/14) Subjective stable alert on iv antibiotics Objective Last 24 Hour Vital Signs Date Time Temp Pulse Resp B/P (MAP) Pulse Ox O2 Delivery O2 Flow Rate FiO2 05/19/18 08:00 98.1 74 19 121/71 (88) 98 98.1 05/19/18 04:00 98.0 93 19 106/74 (85) 98 98.0 05/19/18 00:00 98.2 77 19 119/73 (88) 96 98.2 05/18/18 21:34 72 20 Room Air 21 05/18/18 21:00 Room Air 05/18/18 20:00 98.0 70 19 130/82 (98) 98 98.0 05/18/18 16:00 98.1 69 21 105/67 (80) 99 98.1 69 05/18/18 12:00 97.9 78 22 115/70 (85) 99 97.9 78 Intake and Output 05/18/18 05/19/18 19:00 07:00 Intake Total 1900 ml 3150.000 ml Output Total 1500 ml Balance 1900 ml 1650.000 ml Intake Oral 1200 ml 2000 ml IV Total 700 ml 1150.000 ml Output Urine Total 1500 ml # Voids 2 5 Height (Feet): 5 Height (Inches): 7.00 Weight (Pounds): 150 Objective GENERAL: A well-developed male, comfortable at present. NAD HEENT: Negative. NECK: Supple. No adenopathy. Extraocular movements are grossly intact. LUNGS: Fairly clear and symmetric. Reduced air entry. CARDIAC: S1 and S2. Regular rhythm without murmurs, rubs, or gallops. ABDOMEN: Soft, nontender, and nondistended. EXTREMITIES: No cyanosis or clubbing. slight improvement noted NEUROLOGICAL: Otherwise, grossly nonfocal. Alert and oriented x3. Ishaaya,Kevin M MD May 19, 2018 09:57
[2018-05-19 12:00] VITALS: BP 99/61
[2018-05-19 16:00] VITALS: BP 128/88
--- NOTE | 2018-05-19 19:37 | Podiatric Progress Note ---
Assessment/Plan Patient Nicholas Obando is a 57 year old male who was admitted on May 16, 2018 at 09:45 with cellulites right foot Status: progressing Assessment/Plan A 1. Interdigital tinea right second through fourth interspaces 2. Cellulites right forefoot with secondary gram neg bacillus 3. Macerations/ulcerations right interdigital spaces P 1. Continue IV antibiotics per ID 2. Continue Lamisil PO qd 3. Continue local wound care with wet to dry diluted Betadine solution Subjective Constitutional: pain same Allergies: Coded Allergies: No Known Allergies (Unverified , 01/20/14) Objective Exam Last 24 Hour Vital Signs Date Time Temp Pulse Resp B/P (MAP) Pulse Ox O2 Delivery O2 Flow Rate FiO2 05/19/18 16:00 98.0 63 19 128/88 (101) 98 98.0 63 05/19/18 12:00 97.9 59 19 99/61 (74) 97 97.9 59 05/19/18 09:00 Room Air 05/19/18 08:00 98.1 74 19 121/71 (88) 98 98.1 05/19/18 04:00 98.0 93 19 106/74 (85) 98 98.0 05/19/18 00:00 98.2 77 19 119/73 (88) 96 98.2 05/18/18 21:34 72 20 Room Air 21 05/18/18 21:00 Room Air 05/18/18 20:00 98.0 70 19 130/82 (98) 98 98.0 Microbiology Date/Time Source Procedure Growth Status 05/16/18 09:15 Blood Blood Culture - Preliminary NO GROWTH AFTER 48 HOURS Resulted 05/18/18 14:30 Sputum Expectorated Gram Stain - Final Resulted 05/18/18 14:30 Sputum Expectorated Sputum Culture - Preliminary NO GROWTH Resulted 05/18/18 10:20 Foot Right Gram Stain - Final Resulted 05/18/18 10:20 Wound Culture - Preliminary Gram Negative Bacillus 1 Resulted Dermatological Wound Assessment : Wound location: right, distal, dorsal, foot, other [place] Classification: 1 superficial ulcer Exudate Amount: Scant Cleansing Solution/Irrigant: Betadine Hieu Matthew DPM May 19, 2018 19:37
[2018-05-19 20:00] VITALS: BP 119/83
[2018-05-19] MEDS: QUEtiapine 200mg tab ORAL SCH (21:05)
[2018-05-20] VITALS: BP 128/67
[2018-05-20 04:00] VITALS: BP 120/80
[2018-05-20] MEDS: Vancomycin 750mg/NS 250ml IVPB SCH (05:04)
[2018-05-20 08:00] VITALS: BP 122/81
--- NOTE | 2018-05-20 08:17 | General Progress Note ---
Assessment/Plan Assessment/Plan IMPRESSION: 1. Chronic obstructive pulmonary disease per history. 2. Seizure disorder per history. 3. Evidence of right foot cellulitis. 4. Hyponatremia, unclear as to etiology. PLAN podiatry appreciated and care to continue ID follow up and clearance- on iv antibiotics antibiotics/ cultures reviewed continue to monitor skin and wound care snf dc in am for short term wound care impression, plan, and exam edited and reviewed in detail care discussed with RN Subjective Allergies: Coded Allergies: No Known Allergies (Unverified , 01/20/14) Subjective stable and agrees to snf alert on iv antibiotics Objective Last 24 Hour Vital Signs Date Time Temp Pulse Resp B/P (MAP) Pulse Ox O2 Delivery O2 Flow Rate FiO2 05/20/18 08:00 97.4 74 20 122/81 (95) 100 97.4 05/20/18 04:00 98.9 72 20 120/80 (93) 98 98.9 05/20/18 00:00 99.0 77 19 128/67 (87) 95 99.0 05/19/18 21:00 Room Air 05/19/18 20:53 68 20 Room Air 05/19/18 20:00 98.1 61 19 119/83 (95) 97 98.1 05/19/18 16:00 98.0 63 19 128/88 (101) 98 98.0 63 05/19/18 12:00 97.9 59 19 99/61 (74) 97 97.9 59 05/19/18 09:00 Room Air Intake and Output 05/19/18 05/20/18 19:00 07:00 Intake Total 8077 ml 916.667 ml Balance 8077 ml 916.667 ml Intake Oral 7000 ml IV Total 1077 ml 916.667 ml # Voids 7 4 Height (Feet): 5 Height (Inches): 7.00 Weight (Pounds): 150 Objective GENERAL: A well-developed male, comfortable at present. NAD HEENT: Negative. NECK: Supple. No adenopathy. Extraocular movements are grossly intact. LUNGS: Fairly clear and symmetric. Reduced air entry. CARDIAC: S1 and S2. Regular rhythm without murmurs, rubs, or gallops. ABDOMEN: Soft, nontender, and nondistended. EXTREMITIES: No cyanosis or clubbing. slight improvement noted NEUROLOGICAL: Otherwise, grossly nonfocal. Alert and oriented x3. Kevin Mora MD May 20, 2018 08:17
[2018-05-20] MEDS: Phenytoin 100mg cap ORAL SCH ×2 (08:20→20:54)
[2018-05-20] MEDS: Aspirin EC 81mg tab ORAL SCH (08:21)
[2018-05-20] MEDS: Heparin 5000 units/ml inj SUBQ SCH ×3 (08:25→21:00)
[2018-05-20 12:00] VITALS: BP 122/81
--- NOTE | 2018-05-20 12:29 | Cardiology Report ---
APPROVED REPORT EKG Measurement Heart [id number] Normal sinus rhythm Normal ECG
--- NOTE | 2018-05-20 13:19 | Infectious Diseases Prog Note ---
Assessment/Plan Assessment/Plan A; R foot cellulitis Tinea pedis Seizure disorder Schizophrenia P; Change Vancomycin to Levaquin Add Clotrimazole Subjective ROS Limited/Unobtainable: No Constitutional: Reports: no symptoms Respiratory: Reports: no symptoms Cardiovascular: Reports: no symptoms Gastrointestinal/Abdominal: Reports: no symptoms Genitourinary: Reports: no symptoms Allergies: Coded Allergies: No Known Allergies (Unverified , 01/20/14) Objective Vital Signs Last 24 Hour Vital Signs Date Time Temp Pulse Resp B/P (MAP) Pulse Ox O2 Delivery O2 Flow Rate FiO2 05/20/18 09:00 Room Air 05/20/18 08:00 97.4 74 20 122/81 (95) 100 97.4 05/20/18 04:00 98.9 72 20 120/80 (93) 98 98.9 05/20/18 00:00 99.0 77 19 128/67 (87) 95 99.0 05/19/18 21:00 Room Air 05/19/18 20:53 68 20 Room Air 05/19/18 20:00 98.1 61 19 119/83 (95) 97 98.1 05/19/18 16:00 98.0 63 19 128/88 (101) 98 98.0 63 Height (Feet): 5 Height (Inches): 7.00 Weight (Pounds): 150 General Appearance: no acute distress HEENT: mucous membranes moist Respiratory/Chest: lungs clear Cardiovascular: normal rate Abdomen: soft, non tender Skin: lesions, other - in 3rd to fifth toes in right foot Neurologic/Psychiatric: alert, oriented x 3, responsive Microbiology Date/Time Source Procedure Growth Status 05/18/18 14:30 Sputum Expectorated Gram Stain - Final Complete 05/18/18 14:30 Sputum Expectorated Sputum Culture - Final NORMAL UPPER RESPIRATORY RITA PRESENT Complete 05/18/18 10:20 Foot Right Gram Stain - Final Resulted 05/18/18 10:20 Wound Culture - Preliminary Citrobacter Diversus Gram Negative Bacillus 2 Resulted Current Medications Medications (Trade) Dose Ordered Sig/Celina Route PRN Reason Start Time Stop Time Status Last Admin Dose Admin Acetaminophen (Tylenol) 650 mg Q4H PRN ORAL Mild Pain/Temp > 100.5 05/16/18 14:15 06/15/18 14:14 Acetaminophen/ Hydrocodone Bitart ([place] 5/325) 1 tab Q4H PRN ORAL Moderate Pain (Pain Scale 4-6) 05/16/18 14:15 05/23/18 14:14 Acetaminophen/ Hydrocodone Bitart ([place] 5/325) 2 tab Q4H PRN ORAL Severe Pain (Pain Scale 7-10) 05/16/18 14:15 05/23/18 14:14 Al Hydroxide/Mg Hydroxide (Mylanta) 30 ml Q6H PRN ORAL Per rx protocol 05/16/18 14:15 06/15/18 14:14 Albuterol/ Ipratropium (Albuterol/ Ipratropium) 3 ml Q6H PRN HHN Shortness of Breath 05/16/18 14:15 05/21/18 14:14 Aspirin (Ecotrin) 81 mg DAILY ORAL 05/17/18 09:00 06/16/18 08:59 05/20/18 08:21 Clonazepam (KlonoPIN) 1 mg BID ORAL 05/17/18 14:00 05/24/18 13:59 05/20/18 08:21 Clotrimazole (Lotrimin) 1 applic THREE TIMES A DAY TOPIC 05/18/18 18:00 06/17/18 17:59 05/20/18 12:31 Dextrose (Dextrose 50%) 50 ml STAT PRN IV Hypoglycemia 05/16/18 14:15 06/15/18 14:14 Gabapentin (Neurontin) 300 mg Q24H ORAL 05/17/18 12:00 06/16/18 11:59 05/20/18 12:31 Gabapentin (Neurontin) 600 mg Q12H ORAL 05/16/18 21:00 06/15/18 20:59 05/20/18 08:24 Gadobutrol (Gadavist) 7.5 mmol NOW PRN IV Radiology Procedure 05/17/18 13:30 05/21/18 13:29 Heparin Sodium (Porcine) (Heparin 5000 units/ml) 5,000 units EVERY 12 HOURS SUBQ 05/16/18 21:00 06/15/18 20:59 05/20/18 08:25 Levothyroxine Sodium (Synthroid) 75 mcg DAILY ORAL 05/17/18 09:00 06/16/18 08:59 05/20/18 08:21 Pantoprazole (Protonix) 40 mg DAILY ORAL 05/17/18 09:00 06/16/18 08:59 05/20/18 08:20 Phenytoin (Dilantin) 200 mg DAILY ORAL 05/17/18 09:00 06/16/18 08:59 05/20/18 08:20 Phenytoin (Dilantin) 300 mg BEDTIME ORAL 05/16/18 21:00 06/15/18 20:59 05/19/18 21:05 Pravastatin Sodium (Pravachol) 20 mg BEDTIME ORAL 05/16/18 21:00 06/15/18 20:59 05/19/18 21:05 Quetiapine Fumarate (SEROquel) 400 mg QHS ORAL 05/16/18 21:00 06/15/18 20:59 05/19/18 21:05 Risperidone (RisperDAL) 3 mg BID ORAL 05/16/18 18:00 06/15/18 17:59 05/20/18 08:28 Sodium Chloride 1,000 ml @ 100 mls/hr Q10H IVLG 05/16/18 16:00 06/15/18 15:59 05/20/18 12:00 Terbinafine HCl (LamISIL) 250 mg DAILY ORAL 05/19/18 09:00 05/26/18 08:59 05/20/18 08:21 Vancomycin HCl (Vanco rx to dose) 1 ea DAILY PRN MISC Per rx protocol 05/16/18 14:15 06/15/18 14:14 Vancomycin/Sodium Chloride 250 ml @ 166.667 mls/hr Q12H IVPB 05/17/18 05:00 05/22/18 04:59 05/20/18 05:04 Zolpidem Tartrate (Ambien) 5 mg HSPRN PRN ORAL Insomnia 05/16/18 14:15 05/23/18 14:14 Neville Smith MD May 20, 2018 13:19
[2018-05-20 16:00] VITALS: BP 127/80
[2018-05-20] MEDS ORDERED: Tubing IV Secondary IV ONE (16:35)
--- NOTE | 2018-05-20 18:22 | Podiatric Progress Note ---
Assessment/Plan Patient Nicholas Obando is a 57 year old male who was admitted on May 16, 2018 at 09:45 with cellulites right forefoot Status: progressing Assessment/Plan A 1. Macerations/ulceration right interdigital spaces secondary to gram negative bacillus infection-improving slowly 2. Interdigital tinea right foot P 1. Continue Levaquin 2. Continue Lamisil 3. Continue local wound care Subjective Constitutional: pain decreased Allergies: Coded Allergies: No Known Allergies (Unverified , 01/20/14) Objective Exam Last 24 Hour Vital Signs Date Time Temp Pulse Resp B/P (MAP) Pulse Ox O2 Delivery O2 Flow Rate FiO2 05/20/18 16:00 98.1 68 20 127/80 (96) 100 98.1 05/20/18 12:00 97.4 74 20 122/81 (95) 100 97.4 05/20/18 09:00 Room Air 05/20/18 08:00 97.4 74 20 122/81 (95) 100 97.4 05/20/18 07:00 72 20 Room Air 05/20/18 04:00 98.9 72 20 120/80 (93) 98 98.9 05/20/18 00:00 99.0 77 19 128/67 (87) 95 99.0 05/19/18 21:00 Room Air 05/19/18 20:53 68 20 Room Air 05/19/18 20:00 98.1 61 19 119/83 (95) 97 98.1 Microbiology Date/Time Source Procedure Growth Status 05/16/18 09:15 Blood Blood Culture - Preliminary NO GROWTH AFTER 72 HOURS Resulted 05/18/18 14:30 Sputum Expectorated Gram Stain - Final Complete 05/18/18 14:30 Sputum Expectorated Sputum Culture - Final NORMAL UPPER RESPIRATORY RITA PRESENT Complete 05/18/18 10:20 Foot Right Gram Stain - Final Resulted 05/18/18 10:20 Wound Culture - Preliminary Citrobacter Diversus Gram Negative Bacillus 2 Resulted Dermatological Wound Assessment : Wound location: right, distal, dorsal, foot, other [place] Classification: 1 superficial ulcer Exudate Amount: Scant Cleansing Solution/Irrigant: Betadine Hieu Matthew DPM May 20, 2018 18:22
[2018-05-20 20:00] VITALS: BP 132/84
[2018-05-20] MEDS: QUEtiapine 200mg tab ORAL SCH (20:55)
--- NOTE | 2018-05-20 23:56 | General Progress Note ---
Assessment/Plan Assessment/Plan Schizophrenia encephalopathy -risperdal 3mg bid -haldol 5mg q 6hr prn Subjective Allergies: Coded Allergies: No Known Allergies (Unverified , 01/20/14) Subjective the pt cont to be disorganized and at times agitated Objective Last 24 Hour Vital Signs Date Time Temp Pulse Resp B/P (MAP) Pulse Ox O2 Delivery O2 Flow Rate FiO2 05/20/18 21:00 Room Air 05/20/18 20:38 71 20 Room Air 05/20/18 20:00 98.1 78 20 132/84 (100) 100 98.1 05/20/18 16:00 98.1 68 20 127/80 (96) 100 98.1 05/20/18 12:00 97.4 74 20 122/81 (95) 100 97.4 05/20/18 09:00 Room Air 05/20/18 08:00 97.4 74 20 122/81 (95) 100 97.4 05/20/18 07:00 72 20 Room Air 05/20/18 04:00 98.9 72 20 120/80 (93) 98 98.9 05/20/18 00:00 99.0 77 19 128/67 (87) 95 99.0 Intake and Output 05/19/18 05/20/18 19:00 07:00 Intake Total 8077 ml 916.667 ml Balance 8077 ml 916.667 ml Intake Oral 7000 ml IV Total 1077 ml 916.667 ml # Voids 7 4 Height (Feet): 5 Height (Inches): 7.00 Weight (Pounds): 150 Vijay Todd MD May 20, 2018 23:56
[2018-05-21] VITALS: BP 127/77
[2018-05-21 04:00] VITALS: BP 131/80
[2018-05-21 08:00] VITALS: BP 123/67
--- NOTE | 2018-05-21 08:24 | General Progress Note ---
Assessment/Plan Assessment/Plan IMPRESSION: 1. Chronic obstructive pulmonary disease per history. 2. Seizure disorder per history. 3. Evidence of right foot cellulitis. 4. Hyponatremia, unclear as to etiology. PLAN podiatry appreciated and care to continue ID follow up and clearance- on po antibiotics antibiotics/ cultures reviewed continue to monitor skin and wound care snf dc today impression, plan, and exam edited and reviewed in detail care discussed with RN Subjective Allergies: Coded Allergies: No Known Allergies (Unverified , 01/20/14) Subjective stable and agrees to snf alert on po antibiotics Objective Last 24 Hour Vital Signs Date Time Temp Pulse Resp B/P (MAP) Pulse Ox O2 Delivery O2 Flow Rate FiO2 05/21/18 08:00 98.0 73 20 123/67 (85) 97 98.0 05/21/18 04:00 97.6 67 20 131/80 (97) 98 97.6 05/21/18 00:00 98.0 80 20 127/77 (94) 94 98.0 05/20/18 21:00 Room Air 05/20/18 20:38 71 20 Room Air 05/20/18 20:00 98.1 78 20 132/84 (100) 100 98.1 05/20/18 16:00 98.1 68 20 127/80 (96) 100 98.1 05/20/18 12:00 97.4 74 20 122/81 (95) 100 97.4 05/20/18 09:00 Room Air Intake and Output 05/20/18 05/21/18 19:00 07:00 Intake Total 6100 ml 3000 ml Balance 6100 ml 3000 ml Intake Oral 5000 ml 2000 ml IV Total 1100 ml 1000 ml # Voids 8 5 Height (Feet): 5 Height (Inches): 7.00 Weight (Pounds): 150 Objective GENERAL: A well-developed male, comfortable at present. NAD HEENT: Negative. NECK: Supple. No adenopathy. Extraocular movements are grossly intact. LUNGS: Fairly clear and symmetric. Reduced air entry. CARDIAC: S1 and S2. Regular rhythm without murmurs, rubs, or gallops. ABDOMEN: Soft, nontender, and nondistended. EXTREMITIES: No cyanosis or clubbing. slight improvement noted NEUROLOGICAL: Otherwise, grossly nonfocal. Alert and oriented x3. Kevin Mora MD May 21, 2018 08:24
[2018-05-21] MEDS: Aspirin EC 81mg tab ORAL SCH (09:03)
[2018-05-21] MEDS: Phenytoin 100mg cap ORAL SCH (09:03)
[2018-05-21] MEDS: Heparin 5000 units/ml inj SUBQ SCH (09:11)
[2018-05-21 12:00] VITALS: BP 131/78
[2018-05-21] MEDS ORDERED: LEVAQUIN750 MG ORAL (13:05)
[2018-05-21] MEDS ORDERED: TERBINAFINE HC250 MG PO (13:13)
[2018-05-21] MEDS ORDERED: Tubing IV Secondary IV ONE (14:24)
--- NOTE | 2018-05-23 10:16 | Discharge Summary ---
Discharge Summary Discharge Summary _ DATE OF ADMISSION: 05/16/2018 DATE OF DISCHARGE: 05/21/2018 REASON FOR ADMISSION: 57 years old male with history of emphysema, COPD, schizophrenia, cognitive dysfunction, seizure disorder , presented to emergency room with complain of pain, swelling and evidence of infection in the right foot for 2 weeks. Symptoms were getting progressively worse for the last few days. Patient was not aware how the symptoms started. He denied fever, chills, nausea ,vomiting ,other complaints. Laboratory workup was unremarkable X-ray of the right foot revealed no evidence of acute injury . Troponin was negative Urinalysis revealed no evidence of UTI Sodium 125 ESR 14 Patient admitted with diagnoses cellulitis right foot, hyponatremia, seizure disorder, COPD. CONSULTANTS: ID specialist surgery scheduler Dr. Matthew psychiatrist [facility] COURSE: Patient admitted to medical surgical floor. Patient started on broad-spectrum antibiotic. ID consult was requested. Patient started on the IV hydration with normal saline. Renal parameters and electrolytes were closely monitored , sodium was followed. Sodium 1:30 upon discharge. Recommend close monitoring of sodium level at the facility MRI of the right foot revealed no evidence of osteomyelitis or abscess. Blood culture were negative. Wound culture revealed Citrobacter. IV antibiotic regimen optimized as per ID doctor recommendations. Patient noted to have tinea pedis. Personal Banker seen the patient for tinea pedis. Also maceration/ulceration on the right foot interdigital spaces. Personal Banker recommended local wound care with wet-to-dry diluted Betadine solution , continue IV antibiotics as per ID recommendation , and continue Lamisil daily. Seizure precautions were maintained. Dilantin was continued. No evidence of seizure activity while in the hospital. Psychiatrist closely followed and diagnosed patient with schizophrenia and encephalopathy . Psychiatrist optimized psychiatric medication regimen. Supplemental oxygen and pulmonary toilet were on standby as needed. Pulse oximetry was stable on room air. Sputum culture was negative. No evidence of COPD exacerbation. Patient clinically stabilized and was ready for discharge to [facility] facility for continuation of care. FINAL DIAGNOSES: Right foot cellulitis Tinea pedis Acute hyponatremia COPD Seizure disorder Schizophrenia Encephalopathy DISCHARGE MEDICATIONS: See Medication Reconciliation list. DISCHARGE INSTRUCTIONS: Patient was discharged to [facility] facility for continuation of care; follow up with medical doctor at the facility. I have been assigned to dictate discharge summary for this account. I was not involved in the patient's management. Sophia Ty NP May 23, 2018 10:16
--- NOTE | 2018-05-30 07:54 | Diagnostic Imaging Report ---
APPROVED REPORT CPT Code: 14247 Present Symptoms Comments: BILATERAL LEGS PAIN. BILATERAL: Imaging reveals a patent deep venous system bilaterally. There is no evidence of thrombus within the femoral, popliteal or tibial segments. The greater saphenous veins are also within normal limits. Doppler indicates normal spontaneous flow within these segments.
== END 2018-05-21 14:25 | DRG 602 ==
LOC: EDBD 08:40 → EMR 09:16 → 4E 09:45 → EDBEDREQ 11:23
DX: L03.115 Cellulitis of right lower limb (principal); G93.40 Encephalopathy, unspecified; E87.1 Hypo-osmolality and hyponatremia; L97.519 Non-pressure chronic ulcer of other part of right foot with unspecified severity; G40.909 Epilepsy, unspecified, not intractable, without status epilepticus; J44.9 Chronic obstructive pulmonary disease, unspecified; F20.9 Schizophrenia, unspecified; B35.3 Tinea pedis; M65.871 Other synovitis and tenosynovitis, right ankle and foot; F09 Unspecified mental disorder due to known physiological condition; F41.9 Anxiety disorder, unspecified; Z87.891 Personal history of nicotine dependence
CPT/HCPCS: 36415; 71045; 80048; 80053; 80185; 80202; 81001; 84484; 85025; 85610; 85651; 87040; 87070; 87081; 87181; 87205; 93005; 93970; 94664; 99285; A9585